=== PATIENT | female | born 1970 | race Caucasian/White ===

== ENCOUNTER 2020-07-31 14:50 | Emergency (ER) | payer OTHER, BC ==
[~2020-07-31] VITALS: Ht 162.6 cm; Wt 68.0 kg
[2020-07-31] MEDS ORDERED: PROZAC10 M1 PO (15:02)
[2020-07-31] MEDS ORDERED: LEVO-T100 MCG PO (15:02)
[2020-07-31] MEDS ORDERED: SINGULAIR 10 MG10 M1 PO (15:02)
[2020-07-31 15:27] LABS: ABSOLUTE BASOPHILS 0.1 thou/uL (0.0-0.2); ABSOLUTE EOSINOPHILS 0.5 thou/uL (0.0-0.7); ABSOLUTE LYMPHOCYTES 2.8 thou/uL (0.8-5.3); ABSOLUTE MONOCYTES 0.5 thou/uL (0.0-1.2); ABSOLUTE NEUTROPHILS 3.8 thou/uL (1.6-8.1); BASOPHILS 1.1 %; EOSINOPHILS 6.3 %; HEMATOCRIT 41.2 % (37.0-47.0); LYMPHOCYTES 36.1 %; MCH 30.2 pg (26.0-34.0); MCHC 33.9 g/dL (28.0-37.0); MCV 89.2 fL (80.0-100.0); MONOCYTES 6.7 %; MPV 8.4 fl. (7.2-11.1); NUCLEATED RBCS 0 /100WBC; PLATELET COUNT* 302 thou/uL (150-400); POLYS 49.8 %; RBC 4.62 mil/uL (4.20-5.00); RDW-CV 13.4 % (10.5-14.5); WBC 7.7 thou/uL (4.0-11.0)
[2020-07-31 15:35] LABS: CALCIUM 9.4 mg/dL (8.5-10.1); CREATININE 0.9 mg/dL (0.6-1.3)
[2020-07-31 15:36] LABS: APTT 27.3 Seconds (25.0-31.3); PROTIME 9.9 Seconds (9.20-11.50)
[2020-07-31 15:45] LABS: ALBUMIN 3.8 g/dL (3.4-5.0); TOTAL BILIRUBIN 0.2 mg/dL (<0.1-1.0); TOTAL PROTEIN 7.2 g/dL (6.4-8.2)
[2020-07-31] MEDS ORDERED: NORCO 5-325 TA1 EAC2 PO (18:09)
[2020-07-31] MEDS ORDERED: CARAFATE1 GM PO (18:09)
[2020-07-31 18:51] VITALS: BP 114/67
--- NOTE | 2020-08-01 07:59 | EKG ---
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
--- NOTE | 2020-08-01 11:38 | EKG ---
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
== END 2020-07-31 18:51 | disposition home or self-care (01) ==
LOC: M.ERS 14:50
PROVIDERS: Emergency Medicine Emergency Medical Services
DX: R07.9 Chest pain, unspecified (principal); J45.909 Unspecified asthma, uncomplicated; E03.9 Hypothyroidism, unspecified; Z90.710 Acquired absence of both cervix and uterus; Z79.899 Other long term (current) drug therapy